=== PATIENT | male | born 1990 | race African-American/Black ===

== ENCOUNTER 2020-08-01 02:17 | Emergency (ER) | payer OTHER ==
[~2020-08-01] VITALS: Ht 185.4 cm; Wt 113.4 kg
--- NOTE | 2020-08-01 02:17 | NUR ---
PT BIB [facility], PREBOOK. TAKEN TO CHAIR
[2020-08-01 02:29] VITALS: BP 175/120
[2020-08-01 02:33] VITALS: BP 175/120
--- NOTE | 2020-08-01 02:57 | NUR ---
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
== END 2020-08-01 02:57 ==
LOC: MED 02:17
DX: F10.129 Alcohol abuse with intoxication, unspecified (principal); V89.2XXA Person injured in unspecified motor-vehicle accident, traffic, initial encounter; Y93.89 Activity, other specified; Y92.89 Other specified places as the place of occurrence of the external cause; Y99.8 Other external cause status
CPT/HCPCS: 99283